=== PATIENT | female | born 1970 | race Caucasian/White ===

== ENCOUNTER → 2020-07-27 03:21 | Outpatient (CLI) | payer OTHER, SELFPAY ==
[2020-07-27 20:35] LABS: SARS-CoV-2 RNA PCR Negative
== END ==
PROVIDERS: PCP Family Medicine; Visit Provider Surgery Plastic and Reconstructive Surgery
DX: Z01.812 Encounter for preprocedural laboratory examination (principal); Z20.822 Contact with and (suspected) exposure to COVID-19
CPT/HCPCS: C9803; U0003; U0005

== ENCOUNTER 2020-07-30 01:08 | Day surgery (SDC) | payer OTHER, SELFPAY ==
[2020-07-26 11:37] VITALS: BMI 25.0
[2020-07-30 08:53] VITALS: BP 105/42; PULSE 84; RESP 16; TEMP 36.7; O2SAT 100; BMI 25.2
[2020-07-30] MEDS: LACTATED RINGERS 1,000 ML 30 ML IV CONT (09:04)
--- NOTE | 2020-07-30 10:14 | WPDHPUPDATE1 ---
History and Physical Update Update Date/Time: 07/30/20 10:14 History and Physical has been reviewed, including an updated exam of the patient. There are NO changes in the patient's condition. Risks, benefits, and alternatives have been discussed and questions answered. Patient agrees to proceed with procedure.
--- NOTE | 2020-07-30 10:28 | WPDANESEPPF ---
Anes - Initial Pre Proc Eval Procedure: Operation Date: 07/30/20 10:30 Proposed Procedures p Bilateral Upper Eyelid Blepharoplasty - Cesar Berry MD Date/Time: 07/30/20 10:28 Surgeon: Cesar Berry MD Pre Op Diagnosis: Dermatochalasis Patient Data Age: 50 Gender: F Height: 5 ft 3 in Weight: 64.5 kg Last Vital Signs Temp 98.1 F 07/30/20 08:53 Pulse 84 07/30/20 08:53 Resp 16 07/30/20 08:53 BP 105/42 L 07/30/20 08:53 Pulse Ox 100 07/30/20 08:53 Allergies Allergy/AdvReac Type Severity Reaction Status Date / Time fexofenadine [From Gabby] Allergy Hives Verified 07/30/20 08:38 tramadol AdvReac Other Verified 07/30/20 08:38 Home Medications Medication Instructions Recorded Confirmed Type bupropion HCl 150 mg 24 hr tablet, 150 mg PO QAM 11/24/19 07/30/20 History extended release buspirone 15 mg tablet 15 mg PO BID 11/24/19 07/30/20 History ergocalciferol (vitamin D2) 1,250 1,250 mcg PO MONTHLY 11/24/19 History mcg (50,000 unit) capsule escitalopram oxalate 20 mg tablet 20 mg PO DAILY 11/24/19 07/30/20 History levomefolate 7.5 mg-algal oil 1 cap PO DAILY 11/24/19 07/30/20 History 90.314 mg capsule lorazepam 1 mg tablet 1 mg PO DAILY PRN 11/24/19 07/30/20 History quetiapine 150 mg tablet,extended PO 11/24/19 History release 24 hr trazodone 50 mg tablet 50 mg PO PRN 11/24/19 07/30/20 History vitamin B complex 1 tablet PO DAILY 11/24/19 07/30/20 History hydrocodone 5 mg-acetaminophen 325 1 tablet PO Q6H PRN #15 tablet 07/21/20 07/21/20 Rx mg tablet ondansetron HCl 4 mg tablet 4 mg PO Q6H PRN #30 tablet 07/21/20 07/30/20 Rx Patient hx anesthesia problems: none Family hx anesthesia problems: none PMFSH Past Medical History Medical History Anxiety Panic attack Surgical History Surgical History History of 2 sections History of shoulder surgery History of toe surgery Family History Family History Mother Hypertension Father Hypertension Social History Social History Smoking packs per day: 0.5 Smoking cigarettes per day: 10.0 Years smoked: 15 Smoking pack-years: 7.50 Smoking status: Former smoker Second hand tobacco smoke exposure: No Alcohol intake: current Substance use: current Last use: 2008 Living arrangements: with family Gender identity (if verbalized by the patient): Female Spiritual care concerns: No Anes - Eval Final PreProcedure Day of Procedure 07/30/20 10:28 Patient weight: normal Heart: regular rate and rhythm Lungs: clear to auscultation Airway: Mallampati scale class II Neurological: alert and oriented Last oral intake: >/= 8 hours ASA classification: II Emergent: no Anesthetic plan: proceed Anesthesia type and monitoring: general GIVS and standard monitoring Informed Consent: The patient's anesthetic plan and its attendant risks and benefits were discussed with the patient/family/POA. Questions were solicited and answers provided to the satisfaction of the patient/family/POA.
--- NOTE | 2020-07-30 10:32 | PM.PROC ---
Procedure Note - Detailed Date of procedure: 07/30/20 Pre-op diagnosis: Dermatochalasis Post-op diagnosis: same Procedure performed: Bilateral upper eyelid blepharoplasty Description of procedure: Preoperatively the risks, benefits, alternatives were discussed in extensive detail. I want her to be very realistic about the risks involved as well as expectations. Made sure answered all of her questions to her satisfaction and consent obtained. She was marked in the preoperative holding area. I made a lower bonnie along the tarsal border. I then estimated the upper bonnie. Using a pinch technique I verified that she had no lagophthalmos with simulated skin removal. She was taken to the operating room placed supine on the operating room table. Anesthesia provided by anesthesiology and prepped and draped in a standard sterile fashion. Surgical time-out was taken. 1% lidocaine and 0.25% Marcaine with epinephrine was used anesthetize locally. A 15 blade used to excise the skin flap. I then opened the medial and middle fat compartments and removed only what was absolutely excess verifying no injury to ocular musculature (minimal identified) I closed using running subcuticular 5 0 Prolene. Steri-Strips were placed medial and lateral which secure the sutures. I did use benzoin. She was woken taken to the PACU without difficulty. All instrument sponge counts were correct at the end of the case. Anesthesia: MAC Surgeon: Cesar Berry MD Estimated blood loss (mL): 10 Drains: No Packing: No Pathology: none sent Complications: No immediate complications Condition: stable Disposition: PACU
[2020-07-30] MEDS: ceFAZolin 2 GM/D5W 50 ML 2 GM/50 ML BAG IVPB (10:57)
[2020-07-30] MEDS: LIDO 1%/EPINEPHRINE 1:100,000 50 ML VIAL INFILTRATE (11:39)
[2020-07-30 11:48] VITALS: BP 105/53; PULSE 70; RESP 16; O2SAT 97
[2020-07-30 12:15] VITALS: BP 100/54; PULSE 71; RESP 12
[2020-07-30] MEDS: oxyCODONE HCL (*CRX) 5 MG TAB IR PO (12:33)
[2020-07-30 12:45] VITALS: BP 100/56; PULSE 65; RESP 14
== END 2020-07-30 13:05 | disposition home or self-care (01) ==
PROVIDERS: PCP Family Medicine; Visit Provider Surgery Plastic and Reconstructive Surgery
PROC: (CPT 15822; principal; 2020-07-30 10:30)
DX: H02.834 Dermatochalasis of left upper eyelid (principal); H02.831 Dermatochalasis of right upper eyelid; F41.0 Panic disorder [episodic paroxysmal anxiety]; F41.9 Anxiety disorder, unspecified; Z87.891 Personal history of nicotine dependence
CPT/HCPCS: 15822; A9270; C9803; J0690; J2250; J2405; J2704; J3010; J7120; U0003; U0005